=== PATIENT | male | born 1980 | race Caucasian/White ===

== ENCOUNTER 2017-09-06 16:48 | Observation (INO) | payer OTHER ==
[~2017-09-06] VITALS: Ht 185.4 cm; Wt 72.6 kg
[2017-09-06 17:03] VITALS: BP 143/91
[2017-09-06 17:28] LABS: ABSOLUTE BASOPHIL COUNT 0 /CUMM (0.0-0.2); ABSOLUTE EOSINOPHIL COUNT 0 /CUMM (0.0-0.7); ABSOLUTE GRANULOCYTE CT 2.7 /CUMM (1.4-6.5); ABSOLUTE LYMPH COUNT 1.1 /CUMM (1.2-3.4); ABSOLUTE MONOCYTE COUNT 0.2 /CUMM (0.10-0.60); BASOPHIL % 0.9 % (0.0-2.0); EOSINOPHIL % 0.1 % (0-5); GRANULOCYTE % 65.9 % (42.2-75.2); MEAN CORPUSCULAR HGB 31.2 PG (27.0-31.0); MEAN CORPUSCULAR HGB CONC 34.2 G/DL (33.0-37.0); MEAN CORPUSCULAR VOLUME 91.2 FL (80.0-94.0); MEAN PLATELET VOLUME 6.4 FL (7.4-10.4); PLATELET COUNT 362 /CUMM (130-400); RBC DISTRIBUTION WIDTH 15.6 % (11.5-14.5); RED BLOOD CELL CT 4.39 /CUMM (4.70-6.10); WHITE BLOOD CELL COUNT 4.1 /CUMM (4.8-10.8)
--- NOTE | 2017-09-06 18:31 | ED GENERAL ADULT ---
History of Present Illness General Chief Complaint: ETOH/Drug Related Complaint Stated Complaint: SIB HIGHWATCH FOR EVAL Source: patient, family Exam Limitations: no limitations Triage Note: PT FROM HOME C/O ETOH WITHDRAWAL PER PT. PT NEEDS CLEARANCE FOR HIGHWATCH, PT IS A DAILY ALCOHOLIC SINCE LAST MAY DRINKING 1.5 LITER OF VODKA OVER 2 DAYS. PT BROUGHT IN BY PTS FATHER. PT HAS HX OF ALCOHOL WITHDRAWAL SEIZURES, LAST ONE WAS 2 WEEKS PRIOR. PTS LAST DRINK WAS YESTERDAY MORNING 1 VODKA AND COKE. PTS VSS CURRENTLY, NO S/S OF WITHDRAWAL AT THIS TIME. PT DENIES -HI/-SI. Triage Nurses Notes Reviewed? yes HPI: Patient was sent down from [facility] for medical evaluation prior to alcohol rehabilitation. Patient has a call dependency. Patient's last record was prior to arrival. Patient does have a history of alcohol withdrawal seizures. Patient denies any suicidal or homicidal ideations. (Han SO,Mino Winston) Vital Signs & Intake/Output Vital Signs & Intake/Output Vital Signs Date Time Temp Pulse Resp B/P B/P Pulse O2 O2 Flow FiO2 Mean Ox Delivery Rate 09/07 1111 98.1 80 18 142/92 98 Room Air 09/07 0718 98.3 74 18 130/80 09/07 0709 98.3 74 18 130/80 100 Room Air 09/07 0507 97.0 73 18 119/73 09/07 0428 73 18 119/73 98 Room Air 09/07 0133 98.4 87 18 118/71 09/07 0130 98.4 87 18 118/71 98 09/06 1914 99 143/91 09/06 1703 98.6 99 18 143/91 09/06 1657 98.6 99 18 143/91 97 Room Air ED Intake and Output 09/07 0000 09/06 1200 Intake Total 400 Output Total Balance 400 Intake, Oral 400 Patient 160 lb Weight Weight Reported by Patient Measurement Method Allergies Coded Allergies: apixaban (From ELIQUIS) (VON WILLEBRANDS 09/06/17) aspirin (VON WILLEBRANDS DISEASE 09/06/17) heparin (VON WILLEBRANDS 09/06/17) rivaroxaban (From XARELTO) (VON WILLEBRANDS 09/06/17) warfarin (VON WILLEBRANDS 09/06/17) Reconcile Medications Albuterol Sulfate (Ventolin Hfa) 90 MCG HFA.AER.AD 2 PUF INH PRN ASTHMA ( Reported) Cyanocobalamin (Vitamin B-12) (Unknown Strength) TABLET (Unknown Dose) PO DAILY SUPPLEMENT (Reported) Cyanocobalamin (Vitamin B-12) (Unknown Strength) TABLET (Unknown Dose) PO DAILY SUPPLEMENT (Reported) Cyanocobalamin/FA/Pyridoxine (Folbee Tablet) (Unknown Strength) TABLET ( Unknown Dose) PO DAILY SUPPLEMENT (Reported) Folic Acid (Unknown Strength) CAPSULE (Unknown Dose) PO DAILY SUPPLEMENT ( Reported) Gabapentin 300 MG CAPSULE 1 CAP PO TID MOOD (Reported) (Js Olivas MD) Past History Travel History Traveled to [place] past 21 day No Medical History Any Pertinent Medical History? see below for history Neurological: seizure (ALCOHOL WITHDRAWAL) Psychiatric: anxiety Surgical History Surgical History: non-contributory Psychosocial History What is your primary language Lao Tobacco Use: Never used ETOH Use: alcoholic Illicit Drug Use: denies illicit drug use Family History Hx Contributory? No (Han SO,Mino Winston) Review of Systems Review of Systems Constitutional: Reports: no symptoms. EENTM: Reports: no symptoms. Respiratory: Reports: no symptoms. Cardiovascular: Reports: no symptoms. GI: Reports: no symptoms. Genitourinary: Reports: no symptoms. Musculoskeletal: Reports: no symptoms. Skin: Reports: no symptoms. Neurological/Psychological: Reports: no symptoms. Hematologic/Endocrine: Reports: no symptoms. Immunologic/Allergic: Reports: no symptoms. All Other Systems: Reviewed and Negative (Han SO,Mino Winston) Physical Exam Physical Exam General Appearance: well developed/nourished, alert, awake, intoxicated Head: atraumatic, normal appearance Eyes: Bilateral: PERRL, EOMI, other (SLUGGISH). Ears, Nose, Throat: normal pharynx, normal ENT inspection, hearing grossly normal Neck: normal inspection, supple, full range of motion Respiratory: normal breath sounds, chest non-tender, no respiratory distress, lungs clear Cardiovascular: regular rate/rhythm, normal peripheral pulses Gastrointestinal: normal bowel sounds, soft, non-tender, no organomegaly Back: normal inspection, normal range of motion Extremities: normal inspection, normal capillary refill, normal range of motion, no edema Neurologic/Psych: no motor/sensory deficits, awake, alert, oriented x 3, normal mood/affect Core Measures ACS in differential dx? No CVA/TIA Diagnosis: No Sepsis Present: No Sepsis Focused Exam Completed? No (Han SO,Mino Winston) Progress Differential Diagnoses I considered the following diagnoses in my evaluation of the patient: [Alcohol dependency and acute withdrawal] Initial ED EKG: none Hand-Off Endorsed To: Js Olivas MD Endorsed Time: 1899 Pending: other (RE-EVAl) (Han SO,Mino Winston) Plan of Care: Orders Procedure Date/time Status Regular Diet 09/07 B Active Discharge Patient 09/07 1113 Active Intake & Output 09/[address] in observation 09/06 1899 Active ED Holding Orders 09/06 1899 Active Patient Data 09/06 190 Active Vital Signs 09/06 1899 Active Code Status 09/06 190 Active CIWA 09/06 165 Active URINE DRUGS OF ABUSE 09/06 165 Complete ETHANOL 09/06 165 Complete COMPREHENSIVE METABOLIC PANEL 09/06 165 Complete CBC WITHOUT DIFFERENTIAL 09/06 165 Complete Current Medications Sig/Octavio Start time Last Medication Dose Stop Time Status Admin Trazodone HCl 50 MG AT BEDTIME NEED.. 09/06 2345 AC 09/07 (Desyrel) 0148 Albuterol Sulfate 2 PUF Q4P PRN 09/06 2330 AC 09/06 (Ventolin) 2342 Gabapentin 300 MG Q8 09/06 2200 AC 09/07 (Neurontin) 0506 Melatonin 10 MG QPM 09/06 2100 AC 09/06 (Melatonin) 2136 Clonidine 0.1 MG FOUR TIMES A DAY PRN 09/06 1900 AC 09/06 (Catapres) 191 Hydroxyzine HCl 25 MG 4 TIMES/DAY PRN 09/06 1900 AC 09/07 (Atarax) 0756 Laboratory Tests 09/06/17 1712: Urine Opiates Screen < 100, Methadone Screen < 40, Barbiturate Screen < 60, Ur Phencyclidine Scrn < 6.00, Amphetamines Screen < 100, U Benzodiazepines Scrn < 85, Urine Cocaine Screen < 50, Urine Cannabis Screen < 5.00 09/06/17 1709: Anion Gap 14, Estimated GFR > 60, BUN/Creatinine Ratio 13.8, Glucose 137 H, Calcium 8.9, Total Bilirubin 0.3, AST 38, ALT 39, Alkaline Phosphatase 57, Total Protein 7.3, Albumin 4.4, Globulin 2.9, Albumin/Globulin Ratio 1.5, CBC w Diff NO MAN DIFF REQ, RBC 4.39 L, MCV 91.2, MCH 31.2 H, MCHC 34.2, RDW 15.6 H, MPV 6.4 L, Gran % 65.9, Lymphocytes % 27.8, Monocytes % 5.3, Eosinophils % 0.1, Basophils % 0.9, Absolute Granulocytes 2.7, Absolute Lymphocytes 1.1 L, Absolute Monocytes 0.2, Absolute Eosinophils 0, Absolute Basophils 0, Serum Alcohol 270.0 Hand-Off Endorsed To: Mino Short MD Endorsed Time: 0700 Pending: other ([place]) (Js Olivas MD) Departure Departure Disposition: ACUTE REHAB FACILITY Condition: Stable Clinical Impression Primary Impression: Alcohol dependency Referrals: Korey Alvarado MD (PCP/Family) Additional Instructions: You are medically cleared to go to [facility]. Departure Forms: Customer Survey General Discharge Information (Mino Short MD) Critical Care Note Critical Care Note Critical Care Time: non-applicable (Js Olivas MD) ED Attending Observation Initial Observation Note: I have seen and personally examined ANDRESSA CASTANON on 09/06/17 at 1900. I agree with the current emergency department documentation. The disposition (admission or discharge) is uncertain at this time, he needs a period of observation for the following reason(s): [Patient is intoxicated but he has a history of alcohol withdrawal seizures. Patient is due to go to [facility] what he states he is medically cleared. Patient will need very close monitoring and following of his CIWA score.] The ED Nurse caring for this patient has been personally informed as to what the patient is being observed for. Observation Re-Evaluation: I have reevaluated ANDRESSA CASTANON on 09/07/17 at 0645. The physical findings that support the continued need to observe this patient include [patient CIWA score has remained low. Patient had some difficulty sleeping however with the trazodone he was able to sleep. We'll continue to monitor.]. Observation Discharge: I have reevaluated ANDRESSA CASTANON on 09/07/17 at 0800. The patient is: (): Stable for discharge (): To be admitted to Nursing Floor (): To be placed in Observation on Nursing Floor ([X]): For transfer to other facility The patient was being observed for [alcohol dependency and acute withdrawal] As a result of that observation, I have determined [stable for transfer to [facility] drug rehabilitation facility.]. (Han SO,Mino Winston)
[2017-09-06] MEDS ORDERED: GABAPENTIN300 M2 PO (19:33)
[2017-09-06] MEDS ORDERED: FOLIC ACID0.8 M1 PO (19:34)
[2017-09-06] MEDS ORDERED: VITAMIN B-121000 MC3 PO (19:34)
[2017-09-06] MEDS ORDERED: VENTOLIN HFA18 GM INH (19:34)
[2017-09-06] MEDS ORDERED: FOLBEE TABLET1 EACH PO (19:35)
[2017-09-07 01:33] VITALS: BP 118/71
[2017-09-07 05:07] VITALS: BP 119/73
[2017-09-07 07:18] VITALS: BP 130/80
[2017-09-07 11:11] VITALS: BP 142/92
== END 2017-09-07 11:53 ==
LOC: ERH 16:48 → ERHI 19:00
PROVIDERS: Physician Assistant Medical
DX: F10.229 Alcohol dependence with intoxication, unspecified (principal); F41.9 Anxiety disorder, unspecified
CPT/HCPCS: 6090; 80307; G0378; G0480; J3490